=== PATIENT | male | born 1990 | race Caucasian/White ===

== ENCOUNTER 2021-01-13 15:16 | Outpatient (CLI) | payer BC, SELFPAY ==
--- NOTE | ~2021-01-13 | US_ITS ---
EXAMINATION: US carotid duplex BI DATE: 01/13/2021 15:56 INDICATION: Carotid stenosis TECHNIQUE: Grayscale, color Doppler, and pulsed Doppler images of the cervical carotid arteries were obtained. The degree of vessel stenosis is placed in one of the following categories: normal, <50%, 5 0-69%, >=70% but less than near-occlusion, near-occlusion, or total occlusion. Note that percent sten osis relative to normal distal artery lumen diameter is indirectly measured from velocity measurement s as described by Gerry, et al. Radiology 2003; [id number]:340-346. Notes: Normal: Peak systolic velocity <125 centimeters/sec and no plaque <50%. Peak systolic velocity <125 ( EDV <40; ICA/CCA PSV ratio <2.0; used these factors only a tandem lesions or low cardiac output or co ntralateral disease) 50-69 %: PSV 125-230 (EDV 40-100; ratio 2-4) >= 70% but less than near occlusion: PSV greater than 230 (EDV > 100; ratio> 4.0) Near Occlusion: PSV that is variable; markedly narrowed lumen Occlusion: Absent flow on color/spectral Doppler and no lumen on muhammad scale. COMPARISON: None. FINDINGS: RIGHT: The right common carotid artery (CCA) peak systolic velocity (PSV) is 188 cm/s. The right internal ca rotid artery (ICA) PSV is 139 cm/s. No significant narrowing is identified The right ICA end-diastoli c velocity (EDV) is 28 cm/s. The right ICA/CCA PSV ratio is 0.7. The external carotid artery (ECA) PS V is 130 cm/s. There is antegrade flow in the right vertebral artery. LEFT: The left CCA PSV is 194 cm/s. The left ICA PSV is 104 cm/s. The left ICA EDV is 23 cm/s. The left ICA /CCA PSV ratio is 0.5. The ECA PSV is 129 cm/s. There is antegrade flow in the left vertebral artery . IMPRESSION: 1. 50-69% stenosis in the right internal carotid artery by sonographic criteria. 2. Less than 50% stenosis in the left internal carotid artery by sonographic criteria. Reviewed, dictated and finalized at location A. IMPRESSION: 1. 50-69% stenosis in the right internal carotid artery by sonographic criteria . 2. Less than 50% stenosis in the left internal carotid artery by sonographic cr iteria.
== END 2021-01-13 15:17 | disposition home or self-care (01) ==
PROVIDERS: Visit Provider Internal Medicine Cardiovascular Disease
DX: I65.23 Occlusion and stenosis of bilateral carotid arteries (principal); R09.89 Other specified symptoms and signs involving the circulatory and respiratory systems; R55 Syncope and collapse
CPT/HCPCS: 93880

== ENCOUNTER 2022-02-24 10:12 | Outpatient (CLI) | payer BC, SELFPAY ==
--- NOTE | ~2022-02-24 | MR_ITS ---
EXAMINATION: MR brain/brain stem wo/w con DATE: 02/24/2022 11:30 INDICATION: Dizziness and giddiness. TECHNIQUE: Magnetic resonance imaging (MRI) of the brain and brainstem was performed without and with 20 mL MultiHance intravenous contrast. COMPARISON: None. FINDINGS: There is no intracranial hemorrhage, acute infarction, or abnormal intracranial mass lesion . The ventricles are normal in size. There are mucous retention cysts in the maxillary sinuses. The o rbits are normal. The internal auditory canals and inner and middle ears are normal. The mastoid air cells are normal. IMPRESSION: 1. Normal brain. Reviewed, dictated and finalized at location A. IMPRESSION: 1. Normal brain.
[2022-02-24 10:53] LABS: Estimated Glomerular Filt Rate > 60
== END 2022-02-24 10:13 | disposition home or self-care (01) ==
PROVIDERS: PCP Internal Medicine; Visit Provider Internal Medicine
DX: H53.2 Diplopia (principal); R42 Dizziness and giddiness; J34.1 Cyst and mucocele of nose and nasal sinus
CPT/HCPCS: 70553; A9577

== ENCOUNTER 2023-01-03 16:27 | Outpatient (CLI) | payer BC, SELFPAY ==
[2023-01-03 16:57] LABS: Basophils Percent Auto 0.5 % (0.2-1.2); Eosinophils Absolute Auto 0.1 K/mm3 (0-0.3); Hematocrit 41.5 % (42.0-52.0); Hemoglobin 14.3 g/dL (14.0-18.0); Immature Granulocyte Absolute 0.01 K/mm3 (0.00-0.031); Immature Granulocyte Percent A 0.2 % (0-0.5); Lymphocytes Absolute Auto 2.39 K/mm3 (0.9-3.2); Lymphocytes Percent Auto 38.2 % (18.3-44.2); Mean Corpuscular HGB Conc 34.5 g/dl (32-36); Mean Corpuscular Hemoglobin 30.2 pg (26-34); Mean Corpuscular Volume 87.6 fl (80-100); Mean Platelet Volume 10.6 fl (7.4-10.4); Monocytes Absolute Auto 0.6 K/mm3 (0.1-0.6); Neutrophils Absolute Auto 3.2 K/mm3 (1.3-6.7); Neutrophils Percent Auto 51.1 % (45.5-73.1); Platelet Count Result 181 k/mm3 (150-375); Red Blood Count 4.74 M/mm3 (4.6-6.20); Red Cell Distribution Width 12.1 % (11.5-14.5); White Blood Count 6.3 K/mm3 (4.5-10.0)
[2023-01-03 17:05] LABS: INR 1.1; Prothrombin Time 13.3 Seconds (11.1-14.7)
[2023-01-03 17:06] LABS: Alanine Aminotransferase 104 U/L (6-50); Albumin Level 4.7 g/dL (3.5-5.1); Alkaline Phosphatase 61 U/L (38-126); Aspartate Amino Transferase 55 U/L (17-59); Bilirubin,Total 0.9 mg/dL (0.2-1.3)
[2023-01-03 17:37] LABS: Iron 80 ug/dL (49-181)
[2023-01-03 17:46] LABS: Percent Iron Saturation 22 % (20-50)
[2023-01-03 18:09] LABS: Hepatitis B Surface Anti Res Negative
[2023-01-05 17:37] LABS: GGT 26 U/L (3-90)
[2023-01-05 22:02] LABS: Actin Antibody (IgG) <20 U (<20)
[2023-01-06 12:04] LABS: Hepatitis A Antibody Total Nonreactive (Nonreactive)
[2023-01-06 20:45] LABS: Ceruloplasmin 22 mg/dL (18-36)
[2023-01-07 21:18] LABS: Mitochondrial (M2) Ab (IgG) <=20.0 U (<=20.0)
[2023-01-09 17:03] LABS: Alpha Fetoprotein Tumor Marker 2.7 ng/mL (<6.1)
[2023-01-10 16:03] LABS: ALT 71 U/L (9-46); Alpha-2-Macroglobulin 145 mg/dL (106-279); Apolipoprotein A1 138 mg/dL (94-176); Fibrosis Score 0.14; Fibrosis Stage F0; GGT 27 U/L (3-90); Haptoglobin 52 mg/dL (43-212); Necroinflammat Act Grade A1-A2; Total Bilirubin 0.5 mg/dL (0.2-1.2)
== END 2023-01-03 16:28 | disposition home or self-care (01) ==
PROVIDERS: PCP Student in an Organized Health Care Education/Training Program; Visit Provider Nurse Practitioner
DX: R74.01 Elevation of levels of liver transaminase levels (principal); K76.0 Fatty (change of) liver, not elsewhere classified; E66.9 Obesity, unspecified
CPT/HCPCS: 36415; 80076; 81596; 82105; 82390; 82728; 82977; 83520; 83540; 83550; 85025; 85610; 86038; 86364; 86706; 86708

== ENCOUNTER 2023-06-24 08:48 | Outpatient (CLI) | payer BC, SELFPAY ==
[2023-06-24 09:38] LABS: Alanine Aminotransferase 80 U/L (6-50); Albumin Level 4.8 g/dL (3.5-5.1); Alkaline Phosphatase 49 U/L (38-126); Anion Gap 8 mmol/L (8-16); Aspartate Amino Transferase 55 U/L (17-59); Bilirubin,Total 0.9 mg/dL (0.2-1.3); Blood Urea Nitrogen 17 mg/dL (9-20); Calcium 9.5 mg/dL (8.4-10.2); Carbon Dioxide 27 mmol/L (22-30); Chloride 102 mmol/L (98-107); Estimated Glomerular Filt Rate > 60; Glucose 98 mg/dL (65-110); Hematocrit 42.7 % (42.0-52.0); Mean Corpuscular HGB Conc 35.1 g/dl (32-36); Mean Corpuscular Hemoglobin 30.1 pg (26-34); Mean Corpuscular Volume 85.7 fl (80-100); Mean Platelet Volume 11.2 fl (7.4-10.4); Platelet Count Result 188 k/mm3 (150-375); Potassium 4.6 mmol/L (3.4-5.0); Red Blood Count 4.98 M/mm3 (4.6-6.20); Red Cell Distribution Width 11.9 % (11.5-14.5); Sodium 137 mmol/L (137-145); White Blood Count 4.9 K/mm3 (4.5-10.0)
== END 2023-06-24 08:49 | disposition home or self-care (01) ==
LOC: ANHLAB 08:50
PROVIDERS: PCP Student in an Organized Health Care Education/Training Program; Visit Provider Nurse Practitioner
DX: K76.0 Fatty (change of) liver, not elsewhere classified (principal); K74.01 Hepatic fibrosis, early fibrosis
CPT/HCPCS: 36415; 80053; 85027; 85610

== ENCOUNTER 2024-08-08 14:49 | Outpatient (CLI) | payer BC, SELFPAY ==
--- NOTE | 2024-08-09 14:31 | WPDPFTINT ---
PFT Procedure Performed PFT Procedure Performed Spirometry with Pre/Post Bronchodilator Plethysmography (Lung Vol) Diffusing Cap (DLCO) Flow Vol Loop PFT Interpretation This is a pulmonary function test with pre and post-bronchodilator spirometry, plethysmography and diffusing capacity. The test was performed and results interpreted in accordance with the 2019 and 2005 ATS/ERS Task Force guidelines respectively using the Global Lung Function Initiative-2012 reference equations. Patient demonstrated good effort and cooperation. Reproducibility criteria were met. The quality of the pre bronchodilator spirometry maneuver was Grade A and post bronchodilator spirometry maneuver was Grade A. Findings: Spirometry: the contour the inspiratory and expiratory flow tracing are normal. The pre bronchodilator FVC is 5.42 L, 91% predicted. The pre bronchodilator FEV1 is 4.42 L, 91% predicted. The pre bronchodilator FEV1: FVC ratio is 82%. The post bronchodilator FVC is 5.37 L, representing 1% decrease. The post bronchodilator FEV1 is 4.60 L, representing a 4% increase. The post bronchodilator FEV1: FVC ratio is 86%. Plethysmography: The total lung capacity is 6.43 L, 86% predicted. The functional residual capacity is 2.88 L, 77% predicted. The residual volume is 1.01 L, 56% predicted. Diffusing capacity: The diffusing capacity unadjusted for hemoglobin and carboxyhemoglobin is 32.9, 91% predicted. The diffusing capacity adjusted for alveolar volume is 5.07, 102% predicted. Impression: The spirometry is normal without evidence of an obstructive abnormality. There is no significant improvement after inhaling a single dose of albuterol. The lung volumes are normal. The diffusing capacity is normal. There are no prior studies for comparison
== END 2024-08-08 14:50 | disposition home or self-care (01) ==
PROVIDERS: PCP Student in an Organized Health Care Education/Training Program; Visit Provider Student in an Organized Health Care Education/Training Program
DX: J45.909 Unspecified asthma, uncomplicated (principal)
CPT/HCPCS: 94060; 94726; 94729